=== PATIENT | male | born 1990 | race Caucasian/White ===

== ENCOUNTER → 2022-10-28 07:19 | Outpatient (CLI) | payer BC, SELFPAY ==
--- NOTE | ~2022-10-28 | XR_ITS ---
LUMBAR SPINE 2-3 VIEWS 10/28/2022 Indication: Back pain Procedure: 3 views lumbar spine Comparison: No prior studies for comparison. Findings: Vertebral body heights are maintained. Normal lumbar lordosis. No significant disc narrowin g. No fracture, subluxation or dislocation. Pedicles intact. Sacral foramen are symmetric. Impression: 1: No significant abnormality of the lumbar spine. Reviewed, dictated and finalized at location L. Impression: 1: No significant abnormality of the lumbar spine.
--- NOTE | ~2022-10-28 | XR_ITS ---
XR cervical spine 1-3V INDICATION: Neck pain TECHNIQUE: 3 views of the cervical spine. FINDINGS: The cervical spine is visualized to the cervicothoracic junction. There is no prevertebral soft tiss ue swelling, listhesis, or loss of vertebral body height. Intervertebral disc spaces are normal. Th e osseous central canal is patent. No displaced cervical spine fractures are identified. IMPRESSION: 1. No significant osseous abnormality of the cervical spine. Reviewed, dictated and finalized at location L.
--- NOTE | ~2022-10-28 | XR_ITS ---
XR thoracic spine min 4V 10/28/2022 Indication: Back pain Procedure: 4 views thoracic spine Comparison: No prior studies for comparison. Findings: Vertebral body heights are maintained. Pedicles are intact. No fracture, subluxation or dis location. No paraspinal soft tissue abnormality. Surrounding osseous structures are unremarkable. Impression: 1: No significant abnormality of the thoracic spine. Reviewed, dictated and finalized at location L. Impression: 1: No significant abnormality of the thoracic spine.
== END ==
PROVIDERS: PCP Family Medicine; Visit Provider Family Medicine
DX: R42 Dizziness and giddiness (principal); M54.2 Cervicalgia; M54.9 Dorsalgia, unspecified
CPT/HCPCS: 72040; 72072; 72100